=== PATIENT | female | born 1965 | race Caucasian/White ===

== ENCOUNTER → 2018-10-05 | Outpatient (CLI) | payer OTHER ==
--- NOTE | 2018-10-20 10:26 | RAD ---
DATE: 10/05/2018 EXAM: MAMMO HAO SCREENING BILATERAL HISTORY: Routine screening COMPARISON: 01/26/2016 This study was interpreted with the benefit of Computerized Aided Detection (CAD). Breast Density: HETERO The breast parenchyma is heterogenously dense, which could reduce sensitivity of mammography. Breast parenchyma level C. FINDINGS: 2-D and 3-D tomosynthesis imaging was performed in CC and MLO projections. No suspicious mass or architectural distortion is seen. There are benign type calcifications in the right breast. There is a new cluster of microcalcifications in the lateral aspect of the right breast. No left breast calcifications are evident. IMPRESSION: 1. New cluster of microcalcifications in the lateral aspect of the right breast. Magnification and straight mediolateral views are suggested for optimal characterization. 2. Otherwise stable mammograms. BI-RADS CATEGORY: 0 INCOMPLETE: NEEDS ADDITIONAL IMAGING EVALUATION AND/OR PRIOR MAMMOGRAMS FOR COMPARISON. RECOMMENDED FOLLOW-UP: ADD ADDITIONAL IMAGING PQRS compliance statement: Patient information was entered into a reminder system with a target due date for the next mammogram. Mammography is a sensitive method for finding small breast cancers, but it does not detect them all and is not a substitute for careful clinical examination. A negative mammogram does not negate a clinically suspicious finding and should not result in delay in biopsying a clinically suspicious abnormality. "Our facility is accredited by the [employer] Mammography [employer]."
== END | disposition home or self-care (01) ==
LOC: MAMMO 07:42
PROVIDERS: ATTEND Internal Medicine
DX: Z12.31 Encounter for screening mammogram for malignant neoplasm of breast (principal)
CPT/HCPCS: 77063; 77067

== ENCOUNTER → 2018-11-02 | Outpatient (CLI) | payer OTHER ==
--- NOTE | 2018-11-02 13:26 | RAD ---
DATE: November 02, 2018 EXAM: DIGITAL DIAGNOSTIC RT HISTORY: Further evaluation of new group of calcifications of the lateral aspect of the right breast. COMPARISON: October 05, 2018 Focal digital magnification compression views of the right breast in the CC and MLO projections and a 2-D digital 90 degrees mediolateral view of the right breast were performed. The previously seen group of calcifications are again evident and there are 4 calcifications which are round and smooth and similar in shape. Therefore these most likely are benign. This study was interpreted with the benefit of Computerized Aided Detection (CAD). IMPRESSION: Probable benign calcifications of the right breast. Recommend six-month follow-up mammogram of the right breast which should include magnification views. BI-RADS CATEGORY: 3 PROBABLE BENIGN-SHORT TERM F/U RECOMMENDED FOLLOW-UP: 6M 6 MONTH FOLLOW-UP PQRS compliance statement: Patient information was entered into a reminder system with a target due date April 04, 2019 for the next mammogram. Mammography is a sensitive method for finding small breast cancers, but it does not detect them all and is not a substitute for careful clinical examination. A negative mammogram does not negate a clinically suspicious finding and should not result in delay in biopsying a clinically suspicious abnormality. "Our facility is accredited by the [employer] Mammography [employer]."
== END | disposition home or self-care (01) ==
LOC: MAMMO 12:39
PROVIDERS: ATTEND Internal Medicine
DX: R92.8 Other abnormal and inconclusive findings on diagnostic imaging of breast (principal)
CPT/HCPCS: 77065

== ENCOUNTER → 2019-04-21 | Outpatient (CLI) | payer OTHER ==
--- NOTE | 2019-04-23 09:34 | RAD ---
DATE: 04/21/2019 11:52 AM EXAM: MAMMO HAO DIAG RT HISTORY: short-term imaging followup of a probably benign finding in the right breast. COMPARISON: 11/02/2018, 10/05/2018 Bilateral CC and MLO views of the breasts were performed. Bilateral breast tomosynthesis was performed in CC and MLO projections. This study was interpreted with the benefit of Computerized Aided Detection (CAD). FINDINGS: Breast Density: HETERO The breast parenchyma Is heterogeneously dense, which could reduce sensitivity of mammography. Breast parenchyma level C Right breast microcalcifications are again seen, grossly stable in appearance. IMPRESSION: Right breast probably benign microcalcifications, findings for which short interval imaging is advised. BI-RADS CATEGORY: 3 PROBABLY BENIGN FINDING(S)-SHORT INTERVAL FOLLOW-UP SUGGESTED RECOMMENDED FOLLOW-UP: 6M 6 MONTH FOLLOW-UP magnification views of the right breast and 3-D CC and MLO tomographic images and full field ML view are recommended. At that time, the patient will be due for contralateral screening breast imaging. PQRS compliance statement: Patient information was entered into a reminder system with a target due date for the next mammogram. Mammography is a sensitive method for finding small breast cancers, but it does not detect them all and is not a substitute for careful clinical examination. A negative mammogram does not negate a clinically suspicious finding and should not result in delay in biopsying a clinically suspicious abnormality. "Our facility is accredited by the [employer] Mammography Program."
== END | disposition home or self-care (01) ==
LOC: MAMMO 11:35
PROVIDERS: ATTEND Internal Medicine
DX: R92.0 Mammographic microcalcification found on diagnostic imaging of breast (principal)
CPT/HCPCS: 77065; G0279; 77061

== ENCOUNTER → 2019-11-04 | Outpatient (CLI) | payer OTHER ==
--- NOTE | 2019-11-04 15:14 | RAD ---
Bilateral digital diagnostic mammogram. INDICATION: Six-month follow-up probably benign calcifications in the upper-outer right breast. She is due for screening. COMPARISON: Screening mammograms of 01/26/2016, 10/03/2018, right diagnostic mammograms of 11/02/2018 and April 21, 2019 TECHNIQUE: CC and MLO views of the bilateral breasts were obtained with 2-D and 3-D technique and reviewed with computer-aided detection. A full-field right ML view was also obtained. FINDINGS: Heterogeneously dense breasts. The small cluster of punctate calcifications recommended for follow-up in the right breast are now associated with a spiculated 9 mm mass in the upper outer quadrant right breast. This represents a suspicious interval change from previous imaging. Patient however needs additional imaging with ultrasound of the right breast and axilla to assess for adenopathy and for a suitable sonographic correlate to serve as a biopsy target. This will be performed later the same day and reported separately. The left breast shows an 8 mm asymmetry in the posterior lower outer left breast best seen on cc tomographic image 14 of 56 at the approximate 5:00 position 7 cm from the nipple. This needs additional imaging with targeted left breast ultrasound. IMPRESSION: Incomplete. Both breasts needs additional imaging. Recommend ultrasound of the upper-outer quadrant right breast and right axilla. Recommend ultrasound of the lower-outer quadrant left breast. BI-RADS Category 0 Incomplete. Needs additional imaging evaluation. Patient entered into reminder system with target due date for next mammogram. BI-RADS 0 -- incomplete assessment
--- NOTE | 2019-11-04 17:59 | RAD ---
Bilateral diagnostic breast ultrasound INDICATION: Suspicious right breast mass and left breast asymmetry recommended for additional imaging by ultrasound. COMPARISON: Bilateral diagnostic mammogram of earlier the same day. TECHNIQUE: Grayscale and color Doppler imaging of the right breast focused in the upper outer quadrant was performed as well as targeted ultrasound of the right axilla. Likewise, grayscale and color Doppler imaging of the lower-outer quadrant left breast was performed. FINDINGS: Right breast: An irregular antiparallel hypoechoic 7 mm mass at the right 10:00 position 6 cm from the nipple correlates with the spiculated mammographic mass identified on earlier same day mammography. This is highly suggestive of malignancy and needs biopsy. No axillary adenopathy is identified on sonographic survey. Left breast: Ultrasound of the lower-outer quadrant left breast revealed no definite sonographic mass with imaging performed between the 3 to 6:00 position. Image 15 in the 5:00 position right breast in the radial orientation showed questionable area of hypoechoic tissue posteriorly that did not persist on additional imaging and likely represented retroglandular fat. IMPRESSION: 1. There is a 7 mm spiculated mass in the upper outer right breast that is highly suggestive of malignancy and requires biopsy. 2. Mammographic asymmetry in the posterior lower outer quadrant left breast shows no definite sonographic correlate. However, due to patient's dense breast tissue and near certain presence of malignancy in the contralateral breast, additional imaging with bilateral breast MRI would be prudent to confirm absence of additional findings in needle biopsy or other management. 3. Because MRI would be helpful for local staging and planning of appropriate management, imaging evaluation is considered incomplete with recommendation for bilateral breast MR with IV contrast. However, this should not delay pursuit of biopsy of the suspicious finding the right breast. BI-RADS Category 0 Incomplete. Needs additional imaging evaluation. Recommend bilateral breast MRI with and without IV contrast. BI-RADS 0 -- incomplete assessment
== END | disposition home or self-care (01) ==
LOC: MAMMO 12:55
PROVIDERS: ATTEND Internal Medicine
DX: N63.11 Unspecified lump in the right breast, upper outer quadrant (principal); N63.23 Unspecified lump in the left breast, lower outer quadrant; N64.89 Other specified disorders of breast
CPT/HCPCS: 76641; 77066; G0279; 77062